=== PATIENT | female | born 1955 | race Caucasian/White ===

== ENCOUNTER 2017-03-07 08:55 | Outpatient (CLI) | payer OTHER | END 2017-03-07 11:27 | LOC: D.MAMMO 08:55 | DX: Z12.31 Encounter for screening mammogram for malignant neoplasm of breast (principal) ==

== ENCOUNTER → 2017-05-17 14:00 | Outpatient (CLI) | payer OTHER | END | disposition home or self-care (01) | LOC: D.US 14:00 | DX: M79.605 Pain in left leg (principal); M79.604 Pain in right leg ==

== ENCOUNTER 2020-06-17 17:01 | Inpatient (IN) | payer MEDICARE, OTHER ==
[~2020-06-17] VITALS: Ht 167.6 cm; Wt 126.1 kg
[~2020-06-17 17:01] MED LIST: ASPIRIN325 MG PO; COREG12.5 MG PO; ENTRESTO 97 MG1 EACH PO; HUMALOG 30100 UNITS/ SQ; LIPITOR10 MG PO; TOUJEO SOL300 UNIT/1 SQ; VITAMIN D50000 UNI2 PO; [UNRECOGNIZED DRUG - OTHER]
[2020-06-18] MEDS ORDERED: HUMALOG 30100 UNITS/ SC (14:10)
[2020-06-18 14:27] LABS: BILIRUBIN NEGATIVE (NEGATIVE); KETONE NEGATIVE (NEGATIVE); NITRITE NEGATIVE (NEGATIVE); UROBILINOGEN NORMAL mg/dL (< 2)
[2020-06-18 15:54] LABS: BASOPHILS 0.4 % (0-2); EOSINOPHILS 3.5 % (0-7); HEMATOCRIT 41.9 % (36.0-48.0); HEMOGLOBIN 13.6 g/dL (12-16); IMMATURE GRANULOCYTES 0.3 % (0-5); LYMPHOCYTES 19.4 % (15-50); MCH 30.8 pg (26.0-34.0); MCHC 32.5 g/dL (31.0-37.0); MEAN PLATELET VOLUME 9.6 fL (7.4-10.4); NEUTROPHILS 66.4 % (40-80); PLATELET COUNT 260 10x3/uL (130-400); RBC 4.41 10x6/uL (4.00-5.40); RDW 13.9 % (11.5-14.5)
[2020-06-25] VITALS (14 sets, daily range): BP systolic 90–158; BP diastolic 58–97; BMI 44.5; BMI 44.9
[2020-06-25 06:58] LABS: INR 0.94 (0.85-1.17); PROTIME 12.5 SECONDS (11.6-15.0)
[2020-06-25 07:07] LABS: ANION GAP 15.1 mmol/L (8-16); CARBON DIOXIDE 22.3 mmol/L (21.0-32.0); CREATININE - SERUM 1.1 mg/dL (0.6-1.3); POTASSIUM - SERUM 4.4 mmol/L (3.5-5.1)
--- NOTE | 2020-06-25 08:22 | NUR ---
JOINT COCKTAIL ADMINISTERED TO BACK FIELD. THROUGH TRAFFIC KEPT TO A MINIMUM. ALCOHOL AND BLUE TOWELS USED TO CLEAN BEFORE PREPPING. STERILE GOWNED AND GLOVED TO PREP.
--- NOTE | 2020-06-25 10:50 | NUR ---
IN ROOM. WAITING ON REPORT.
--- NOTE | 2020-06-25 18:33 | NUR ---
PT ASSISTED WITH GETTING INTO HER GOWN. PLACED ON CPM MACHINE. TOLERATING WELL. CL IN REACH. WCTM
--- NOTE | 2020-06-25 20:00 | NUR ---
ALERT RESTING IN BED CPM IN USE, DENIES PAIN OR NEEDS AT [facility]SI TIEM, SEE SHIFT ASSESSMENT, CALL GRIS ZUÑIGA
[2020-06-26 04:30] VITALS: BP 128/55
[2020-06-26 07:25] LABS: CALCIUM 7.8 mg/dL (8.5-10.1); CARBON DIOXIDE 18.9 mmol/L (21.0-32.0); CREATININE - SERUM 1.4 mg/dL (0.6-1.3); MAGNESIUM - SERUM 1.9 mg/dL (1.8-2.4); PHOSPHOROUS 3.4 mg/dL (2.5-4.9); POTASSIUM - SERUM 4.9 mmol/L (3.5-5.1)
[2020-06-26 07:55] LABS: BASOPHILS 0.3 % (0-2); EOSINOPHILS 0.9 % (0-7); HEMATOCRIT 35.2 % (36.0-48.0); IMMATURE GRANULOCYTES 0.3 % (0-5); LYMPHOCYTES 11.9 % (15-50); MCH 30.4 pg (26.0-34.0); MCHC 31.3 g/dL (31.0-37.0); MCV 97.2 fL (80.0-100.0); MEAN PLATELET VOLUME 10.3 fL (7.4-10.4); MONOCYTES 10.6 % (2-11); PLATELET COUNT 126 10x3/uL (130-400); RBC 3.62 10x6/uL (4.00-5.40)
[2020-06-26 08:38] VITALS: BP 126/78
--- NOTE | 2020-06-26 09:30 | NUR ---
PT RESTING IN BED. RESP EVEN AND UNLABORED. PT REPORTS PAIN TO RIGHT LOWER EXTREMITY 3/10 AT THIS TIME. RAYO WRAP DRESSING C/D/I TO LOWER EXTREMITY. SALINE LOC TO LEFT AC INTACT, SITE WITHOUT REDNESS OR EDEMA. DENIES FURTHER NEEDS AT THIS TIME. CL WITHIN REACH. ENCOURAGED TO CALL WITH NEEDS. CONTINUE POC
[2020-06-26 11:33] VITALS: BP 124/71
[2020-06-26 13:28] VITALS: Ht 167.6 cm; Wt 126.1 kg
--- NOTE | 2020-06-26 13:46 | OP ---
PATIENT NAME: SAMIR ISABEL MEDICAL RECORD: [id number] :59 LOCATION:D.[facility] D.1209 ADMISSION DATE:06/25/20 SURGEON: CLIFFORD HERRERA MD DATE OF OPERATION: 06/25/2020 PREOPERATIVE DIAGNOSIS: Osteoarthritis, right knee. POSTOPERATIVE DIAGNOSIS: Osteoarthritis, right knee. PROCEDURE PERFORMED: Right total knee arthroplasty. INDICATIONS FOR PROCEDURE: Ms. Isabel is a 65-year-old female with history of right knee pain and arthritis. She has had pain now for several years that she has been managing conservatively. It is beginning to affect her ADLs and ability to mobilize. She has elected to proceed with surgery for right total knee arthroplasty. Risks, benefits, and alternatives of surgery were discussed with the patient and consent was obtained. DESCRIPTION OF PROCEDURE: The patient was met in the holding area where her identity and confirmation of procedure was performed. The right lower extremity was marked. She was taken to the operating room where she was placed supine on the operating table and anesthesia was administered. Tourniquet was applied to the right thigh and the right leg was prepped and draped in a sterile fashion. The patient received preoperative antibiotics as well as TXA and time-out was performed before initiating the case. On initiation of the case, the leg was exsanguinated and the tourniquet was raised. Total tourniquet time was 117 minutes. A medial parapatellar approach was utilized for exposure. The knee was placed into flexion. An incision was made over the anterior knee, dissecting down to the extensor mechanism. The quad tendon was then split along its medial border curving medially around the patella and down the medial border of the patellar tendon. Knee was then taken into extension. Tissue from the posterior aspect of the fat pad of the patella was excised as well as tissue over the anterior distal femur. The flap tissue was elevated off the medial tibial plateau and a portion of the medial meniscus was excised. The patella was then translated laterally. The knee was brought into flexion. Retractors were placed medial and lateral. There was significant arthritis in the knee to the point it was obscuring the notch. Osteotome was used to remove the osteophytes around this area. Whitesides line was marked and we then drilled for a femoral tunnel. The intramedullary femoral guide was placed and the distal femoral cutting block was pinned into position. The distal femoral cut was completed. The distal femur was then sized to a size 62.5. Cutting block was placed and pinned into position. Our anterior, posterior, and chamfer cuts were completed. Osteophytes were removed from around the distal femur. Our trial for a box cut was then placed in position over the distal femur. It was pinned into place and our box cut was then completed using reciprocating saw and osteotome. The cruciate ligaments were difficult to visualize due to the amount of osteophytes, but there was a portion of the PCL that was able to be debrided once our cuts were completed. The remainder of the medial and lateral menisci was excised as well. We then turned our attention to the tibia, PCL retractor was placed, and the tibia was brought forward. Our extramedullary guide was placed and adjusted for alignment. A 4 mm was taken off the medial tibial plateau. This was pinned into place and our proximal tibial cut was completed. The bony piece was removed. Loose bodies were removed from around the edges and the posterior aspect of the femur and knee joint. Tibia was sized to a size 67. The plate was pinned into place and the knee was then trialed. Our femoral OPERATIVE REPORT [id number] SAMIR ISABEL implant was placed and we trialled with a size [address] up to a size 14 poly at which point we felt to have good fit and stability through range of motion. We then turned our attention to the patella. There were large osteophytes around the patella that were debrided with a rongeur. Cautery was then used around the patella. It was then cut to the floor of the lateral facet, sized to a size 31, and drilled. The knee was then brought back into flexion and our poly and femoral trials were removed. The tibia was prepared using a reamer and punch. The tibial trial was then removed and our laminar customs compliance director was then inserted. Posterior osteophytes were removed from distal femur both medial and lateral. Loose bodies were also removed posteriorly. Once this was complete, the knee was taken into extension and irrigated thoroughly with saline. There was a large void medially where osteophytes and loose bodies had been with some damage to the MCL as well. The joint space was then infiltrated in the tissues, the distal femur, proximal tibia, and around the joint capsule. The knee was then taken into flexion and the bony ends were dried. Our final components were then cemented into place. Trial poly was placed and the knee was held in full extension while the cement was allowed to dry. Excess cement was removed throughout this process. The patella was held with the patellar clamp. Once this was dry, the knee was again trialed and noted to have slight instability, especially at 30 degrees of flexion. We therefore went up to a size 16 poly at which point we had good fit and stability throughout range of motion. We did place a PS plus poly due to the MCL instability. Our final poly was placed and clipped into position. It was taken through range of motion, had good fit and stability. The knee was irrigated thoroughly with saline. A drain was placed in the lateral gutter. The extensor mechanism was closed with #1 Vicryl suture. Subcutaneous tissues were irrigated thoroughly with saline. The remainder of the joint solution was injected. These were then closed with 2-0 Vicryl and the skin was closed with cornell. An Aquacel dressing was used to cover the incision. The knee was then covered with Webril and Rocael wrap. The patient was turned back over to anesthesia. She was awakened, extubated, and taken to recovery room in stable condition. POSTOPERATIVE PLAN: The patient is going to be admitted for routine postoperative care. She will receive 24 hours of postop antibiotics. She will be started on DVT prophylaxis tomorrow. Physical therapy will be consulted to assist with mobility, weightbearing as tolerated on the right lower extremity. PLAN: Home with home health upon discharge. ANESTHESIA: General with peripheral nerve block. COMPLICATIONS: None. ESTIMATED BLOOD LOSS: 100 mL. NTS:[id number] Voice Confirmation ID: [id number] DOCUMENT ID: [id number] OPERATIVE REPORT [id number] SAMIR ISABEL BRENT M MD at 1346 CC: [id number] DICTATION DATE: 06/25/[address] ENGINEER: 06/25/201957 [facility] [place] [id number] [place] [address]
[2020-06-26 15:27] VITALS: BP 142/72
--- NOTE | 2020-06-26 17:55 | NUR ---
CPM PLACED TO RIGHT LOWER EXTREMITY PER MD ORDERS. PT JUAQUIN WELL
[2020-06-27 06:06] VITALS: BP 136/86; BP 1363/86
[2020-06-27 06:08] LABS: HEMATOCRIT 31.8 % (36.0-48.0); HEMOGLOBIN 10.1 g/dL (12-16); MCH 29.8 pg (26.0-34.0); MCHC 31.8 g/dL (31.0-37.0); MCV 93.8 fL (80.0-100.0); MEAN PLATELET VOLUME 9.8 fL (7.4-10.4); RBC 3.39 10x6/uL (4.00-5.40); RDW 13.7 % (11.5-14.5)
[2020-06-27 07:29] VITALS: BP 182/82
--- NOTE | 2020-06-27 08:10 | NUR ---
PT TAKEN OFF CPM. ASSISTED TO BSC WITH MINIMAL ASSIST. PT BATH PERFORMED AT THIS TIME WITH CHANGE OF CLOTHING. PT JUAQUIN WELL. ASSISTED WITH MINIMAL ASSIST BACK TO BED. SALINE LOCK TO LEFT AC, SITE WITHOUT REDNESS OR EDEMA. DRESSING TO RIGHT LOWER EXTREMITY C/D/I. DENIES FURTHER NEEDS AT THIS TIME. CL WITHIN REACH. ENCOURAGED TO CALL WITH NEEDS. CONTINUE POC
[2020-06-27 09:08] LABS: ALBUMIN 2.7 g/dL (3.4-5.0); ANION GAP 15.7 mmol/L (8-16); BILIRUBIN - TOTAL 0.57 mg/dL (0.2-1.3); CALCIUM 7.9 mg/dL (8.5-10.1); CARBON DIOXIDE 19.2 mmol/L (21.0-32.0); CREATININE - SERUM 1.3 mg/dL (0.6-1.3); POTASSIUM - SERUM 4.9 mmol/L (3.5-5.1); PROTEIN - SERUM 6.4 g/dL (6.4-8.2)
[2020-06-27 12:05] VITALS: BP 147/64
--- NOTE | 2020-06-27 12:56 | MORECARE ---
CASE MANAGEMENT DISCHARGE SUMMARY PATIENT: SAMIR ISABEL UNIT: [id number] ADM DATE: 06/25/20 AGE: 65 : 59 SEX: F ROOM/BED: D.1209 AUTHOR: PRAVEEN JUARES PHYSICIAN: REFERRING PHYSICIAN: CLIFFROD HERRERA MD DATE OF SERVICE: 06/27/20 Discharge Plan Patient Name: SAMIR ISABEL Facility: [facility]:[place] : 1955 Planned Disposition: Home Health Service Anticipated Discharge Date: Discharge Date: Expected LOS: Initial Reviewer: [email or web address] Initial Review Date: 06/25/2020 Generated: 06/27/20 1:56 pm Patient Name: SAMIR ISABEL Page [id number] at 1256 All edits/amendments must be made on the electronic document DICTATION DATE: 06/27/20 1256 EVS TECH: NORMA 06/27/20 1256 RPT#: [id number] DC DATE: STATUS: ADM IN [facility] [address] [place] [address] END OF REPORT
--- NOTE | 2020-06-27 13:06 | MORECARE ---
CASE MANAGEMENT DISCHARGE SUMMARY PATIENT: SAMIR ISABEL UNIT: [id number] ADM DATE: 06/25/20 AGE: 65 : 59 SEX: F ROOM/BED: D.1209 AUTHOR: MOR,DOC PHYSICIAN: REFERRING PHYSICIAN: CLIFFORD HERRERA MD DATE OF SERVICE: 06/27/20 Discharge Plan Patient Name: SAMIR ISABEL Facility: [facility]:[place] : 1955 Planned Disposition: Home Health Service Anticipated Discharge Date: Discharge Date: Expected LOS: Initial Reviewer: [id number] Initial Review Date: 06/25/2020 Generated: 06/27/20 2:06 pm Comments DCP- Discharge Planning Updated by [email or web address]: Genevieve Marcelo on 06/27/20 12:[address] Patient Name: SAMIR ISABEL Admission Status: Elective Accout number: [id number] Admission Date: 06-25-2020 : 1955 Admission Diagnosis: Attending: WALKER Current LOS: 2 Anticipated DC Date: Planned Disposition: Home Health Service Primary Insurance: MEDICARE A & B Discharge Planning Comments: CM met with patient to assess discharge planning needs. Patient lives at home with her , daughter and son in law where she is independent with her care. At discharge she plans to go home and her daughter will be her local flatbed driver home. She will have home health, [facility] with [facility] . She has a walker and BSC that has been delivered to the hospital. She feels safe discharging home today. I will fax clinicals over for her. I have notified Ray with [facility] . CM to follow and assist as needed Correctional Treatment Specialist: Genevieve Marcelo DCPIA - Discharge Planning Initial Assessment Updated by [email or web address]: Genevieve Marcelo on 06/27/20 12:57 pm * Is the patient Alert and Oriented? Yes * How many steps to enter\exit or inside your home? ramp * PCP ARAUZ * Pharmacy [facility] * Preadmission Environment Home with Family * ADLs Independent * Equipment Bedside Commode Rolling Walker * List name and contact numbers for known caregivers / representatives who currently or will assist patient after discharge: LEXII ISABEL ( SPOUSE ) [phone] * Verbal permission to speak to the caregivers and representatives has been obtained from the patient. N/A * Additional services required to return to the preadmission environment? Yes * Can the patient safely return to the preadmission environment? Yes * Has this patient been hospitalized within the prior 30 days at any hospital? No Coverage Notice Reviewer: [email or web address] Diana Marcelo Notice Issued Date-Time: 06/27/2020 13:00 Notice Type: Patient Choice Letter Notice Delivered To: Patient Relationship to Patient: Digitizer Name: Delivery Method: HAND - Hand Delivered Alyce Days: Prior Verbal Notification: Recipient Understood Notice: Yes Recipient Signature: Yes Med Rec Note Co-signed by Attending: Coverage Notice Comment: arely with [employer] Last DP export: 06/27/20 11:56 a Patient Name: SAMIR ISABEL Page 90311 at 1306 All edits/amendments must be made on the electronic document DICTATION DATE: 06/27/20 1306 LOAN WORKOUT OFFICER: NORMA 06/27/20 1306 RPT#: [id number] DC DATE: STATUS: ADM IN [facility] [address] [place] [address] END OF REPORT
--- NOTE | 2020-06-27 13:42 | MORECARE ---
CASE MANAGEMENT DISCHARGE SUMMARY PATIENT: SAMIR ISABEL UNIT: [id number] ADM DATE: 06/25/20 AGE: 65 : 59 SEX: F ROOM/BED: D.1209 AUTHOR: MOR,DOC PHYSICIAN: REFERRING PHYSICIAN: CLIFFORD HERRERA MD DATE OF SERVICE: 06/27/20 Discharge Plan Patient Name: SAMIR ISABEL Facility: [facility]:[place] : 1955 Planned Disposition: Home Health Service Anticipated Discharge Date: Discharge Date: Expected LOS: Initial Reviewer: [email or web address] Initial Review Date: 06/25/2020 Generated: 06/27/20 2:42 pm Comments DCP- Discharge Planning Updated by [email or web address]: Genevieve Marcelo on 06/27/20 12:[address] Patient Name: SAMIR ISABEL Admission Status: Elective Accout number: [id number] Admission Date: 06-25-2020 : 1955 Admission Diagnosis: Attending: WALKER Current LOS: 2 Anticipated DC Date: Planned Disposition: Home Health Service Primary Insurance: MEDICARE A & B Discharge Planning Comments: CM met with patient to assess discharge planning needs. Patient lives at home with her , daughter and son in law where she is independent with her care. At discharge she plans to go home and her daughter will be her wood pile driver operator home. She will have home health, [facility] with [facility] . She has a walker and BSC that has been delivered to the hospital. She feels safe discharging home today. I will fax clinicals over for her. I have notified Ray with [facility] . CM to follow and assist as needed Audio Visual Coordinator: Genevieve Marcelo DCPIA - Discharge Planning Initial Assessment Updated by [email or web address]: Genevieve Marcelo on 06/27/20 12:57 pm * Is the patient Alert and Oriented? Yes * How many steps to enter\exit or inside your home? ramp * PCP ARAUZ * Pharmacy [facility] * Preadmission Environment Home with Family * ADLs Independent * Equipment Bedside Commode Rolling Walker * List name and contact numbers for known caregivers / representatives who currently or will assist patient after discharge: LEXII ISABEL ( SPOUSE ) [phone] * Verbal permission to speak to the caregivers and representatives has been obtained from the patient. N/A * Additional services required to return to the preadmission environment? Yes * Can the patient safely return to the preadmission environment? Yes * Has this patient been hospitalized within the prior 30 days at any hospital? No External Providers External Provider: [facility] Next Contact Date: Service Request Date: Service Type: Resolution: Reviewer: Comments: Coverage Notice Reviewer: [email or web address] Diana Marcelo Notice Issued Date-Time: 06/27/2020 13:00 Notice Type: Patient Choice Letter Notice Delivered To: Patient Relationship to Patient: Still Operator Helper Name: Delivery Method: HAND - Hand Delivered Alyce Days: Prior Verbal Notification: Recipient Understood Notice: Yes Recipient Signature: Yes Med Rec Note Co-signed by Attending: Coverage Notice Comment: arely with [employer] Last DP export: 06/27/20 12:06 p Patient Name: SAMIR ISABEL Page 42881 at 1342 All edits/amendments must be made on the electronic document DICTATION DATE: 06/27/20 1342 INDIAN TRADER: NORMA 06/27/20 1342 RPT#: [id number] DC DATE: STATUS: ADM IN [facility] [address] [place] [address] END OF REPORT
[2020-06-27] MEDS ORDERED: ELIQUIS2.5 MG PO (13:54)
[2020-06-27] MEDS ORDERED: NORCO 7.5-3251 EACH PO (13:55)
--- NOTE | 2020-06-27 15:30 | NUR ---
PT DISCHARGE INSTRUCTIONS PROVIDED. EDUCATED PT REGARDING NEW PRESCRIBED MEDICATIONS, ALSO CONTINUATION OF NEW PRESCRIPTIONS. PT DENIES ANY QUESTIONS REGARDING EITHER. DISCUSSED FOLLOW UP APPOINTMENT AND DR. HERRERA'S AFTER SURGERY CARE. DISCUSSED S/S OF INFECTIONS OR PROBLEMS AND WHEN TO CONTACT THE OR RETURN TO ER. PT VOICES UNDERSTANDING. IV DISCONTINUED FROM LEFT AC. CATH INTACT DRESSING APPLIED. PT DENIES QUESTIONS OR CONCERNS. AWAITING RIDE TO ARRIVE FOR TRANSPORT HOME.
--- NOTE | 2020-06-30 09:05 | MORECARE ---
CASE MANAGEMENT DISCHARGE SUMMARY PATIENT: SAMIR ISABEL UNIT: [id number] ADM DATE: 06/25/20 AGE: 65 : 59 SEX: F ROOM/BED: D.1209 AUTHOR: MOR,DOC PHYSICIAN: REFERRING PHYSICIAN: CLIFFORD HERRERA MD DATE OF SERVICE: 06/30/20 Discharge Plan Patient Name: SAMIR ISABEL Facility: [facility]:[place] : 1955 Planned Disposition: Home Health Service Anticipated Discharge Date: Discharge Date: 06/27/2020 Expected LOS: Initial Reviewer: [email or web address] Initial Review Date: 06/25/2020 Generated: 06/30/20 10:05 am Comments DCP- Discharge Planning Updated by [email or web address]: Genevieve Marcelo on 06/27/20 12:[address] Patient Name: SAMIR ISABEL Admission Status: Elective Accout number: [id number] Admission Date: 06-25-2020 : 1955 Admission Diagnosis: Attending: WALKER Current LOS: 2 Anticipated DC Date: Planned Disposition: Home Health Service Primary Insurance: MEDICARE A & B Discharge Planning Comments: CM met with patient to assess discharge planning needs. Patient lives at home with her , daughter and son in law where she is independent with her care. At discharge she plans to go home and her daughter will be her bobtail driver home. She will have home health, [facility] with [facility] . She has a walker and BSC that has been delivered to the hospital. She feels safe discharging home today. I will fax clinicals over for her. I have notified Ray with [facility] . CM to follow and assist as needed Redipper: Genevieve Marcelo DCPIA - Discharge Planning Initial Assessment Updated by [email or web address]: Genevieve Marcelo on 06/27/20 12:57 pm * Is the patient Alert and Oriented? Yes * How many steps to enter\exit or inside your home? ramp * PCP ARAUZ * Pharmacy [facility] * Preadmission Environment Home with Family * ADLs Independent * Equipment Bedside Commode Rolling Walker * List name and contact numbers for known caregivers / representatives who currently or will assist patient after discharge: LEXII ISABEL ( SPOUSE ) [phone] * Verbal permission to speak to the caregivers and representatives has been obtained from the patient. N/A * Additional services required to return to the preadmission environment? Yes * Can the patient safely return to the preadmission environment? Yes * Has this patient been hospitalized within the prior 30 days at any hospital? No Coverage Notice Reviewer: [email or web address] Diana Marcelo Notice Issued Date-Time: 06/27/2020 13:00 Notice Type: Patient Choice Letter Notice Delivered To: Patient Relationship to Patient: Water Technician Name: Delivery Method: HAND - Hand Delivered Alyce Days: Prior Verbal Notification: Recipient Understood Notice: Yes Recipient Signature: Yes Med Rec Note Co-signed by Attending: Coverage Notice Comment: arely with [employer] Last DP export: 06/27/20 12:42 p Patient Name: SAMIR ISABEL Page 00060 at 0905 All edits/amendments must be made on the electronic document DICTATION DATE: 06/30/20904 PIPELINE TECHNICIAN: NORMA 06/30/20904 RPT#: [id number] DC DATE:06/27/20 STATUS: DIS IN [facility] [address] [place] [address] END OF REPORT
== END 2020-06-27 17:35 | disposition home health service (06) | DRG 470 ==
LOC: D.SDCHOLD 06-25 05:35 → D.M3 06-25 05:35 → D.SDCHOLD 06-25 07:30 → D.M3 06-25 10:33
PROVIDERS: Family Medicine; ADMIT Orthopaedic Surgery; ATTEND Orthopaedic Surgery
PROC: 0SRC0J9 Replacement of Right Knee Joint with Synthetic Substitute, Cemented, Open Approach (ICD-10-PCS; principal; 2020-06-25 07:30)
DX: M17.11 Unilateral primary osteoarthritis, right knee (principal); I11.0 Hypertensive heart disease with heart failure; I50.9 Heart failure, unspecified; E11.65 Type 2 diabetes mellitus with hyperglycemia; Z95.0 Presence of cardiac pacemaker